=== PATIENT | female | born 2000 | race African-American/Black ===

== ENCOUNTER 2021-10-28 22:52 | Emergency (ER) | payer OTHER ==
[~2021-10-28 22:52] MED LIST: Iopamidol 300 61% 100 ML VIAL FS ONE
[2021-10-28 23:51] LABS: Hemoglobin 12.3 g/dL (12.0-15.5); Mean Corpuscular HGB CONC 32.6 g/dL (32.0-36.0); Mean Corpuscular Hemoglobin 28.7 pg (27.0-33.0); Mean Corpuscular Volume 88.1 fl (81.6-98.3); Mean Platelet Volume 9.3 fl (7.4-10.4); Platelet Count 218 10x3/uL (150-450); RBC Distribution Width 13.3 % (11.5-14.5); Red Blood Cell (RBC) Count 4.28 10x6/uL (3.90-5.03); White Blood Cell (WBC) Count 6.3 10x3/uL (3.5-10.5)
[2021-10-28 23:52] LABS: MDiff Complete? YES
[2021-10-28 23:59] LABS: ALT (SGPT) 7 U/L (8-55); AST (SGOT) 12 U/L (5-34); Alkaline Phosphatase 58 U/L (40-110); Anion Gap 11 mmol/L (10-20); BUN (Urea Nitrogen) 11 mg/dL (7.0-18.7); Bilirubin, Total 0.3 mg/dL (0.2-1.2); Calc. Creatinine Clearance 0 mL/min (70-130); Calcium 9.1 mg/dL (7.8-10.44); Carbon Dioxide 27 mmol/L (22-29); Chloride 106 mmol/L (98-107); Estimated GFR 104; Globulin 2.7 g/dL (2.4-3.5); Glucose 76 mg/dL (70-105); Potassium 3.7 mmol/L (3.5-5.1); Protein, Total 6.7 g/dL (6.0-8.3); Sodium 140 mmol/L (136-145)
[2021-10-29 00:25] LABS: Eosinophils 2 % (0-10); Lymphocytes 66 % (21-51); Monocytes 3 % (0-10); Neutrophil 29 % (42-75)
[2021-10-29 00:26] LABS: Diff Comment (RBC Morph SCRN) NORMAL; Platelet Morphology Comment Appears Adequate
== END 2021-10-29 00:30 | disposition home or self-care (01) ==
LOC: CSHERS 22:52
DX: R07.89 Other chest pain (principal); R13.10 Dysphagia, unspecified
CPT/HCPCS: 70491; 71045; 80053; 85025; 93005; Q9967